=== PATIENT | female | born 1990 | race Caucasian/White ===

== ENCOUNTER 2022-05-13 18:32 | Emergency (ER) | payer OTHER, SELFPAY ==
--- NOTE | ~2022-05-13 | CT_ITS ---
EXAMINATION: CT HEAD WITHOUT and with CONTRAST CLINICAL INFORMATION: 1 year post surgery for a brain tumor. COMPARISON: CT head 08/06/2021 TECHNIQUE: Contiguous axial imaging was performed from the skull base to vertex without and with intravenous administration of contrast. 85 mL of Omnipaque 350 injected. Coronal and sagittal reformatted images are performed at the CT scanner. [This CT examination was performed using dose optimization techniques as appropriate, variously including the following: *Automated exposure control *Adjustment of mA and/or kV according to patient size (this includes techniques or standardized protocols for targeted exams where dose is matched to indication/reason for exam; i.e. extremities or head) *Use of iterative reconstruction technique] DLP: 1166 mGy-cm. FINDINGS: Status post right occipital craniotomy. Focal encephalomalacia in the right cerebral hemisphere communicating with the fourth ventricle There is no evidence of acute intracranial hemorrhage or acute territorial infarction. No abnormal mass-effect or midline shift is seen. Anderson to white matter differentiation is well preserved. No abnormal enhancement postcontrast. No extra-axial fluid collections are identified. The ventricles are normal in size. There is no abnormal attenuation within the brain parenchyma. The mastoid air cells and visualized portions of the paranasal sinuses are well-aerated. No significant change since CT 12/06/2021. CT/CT head/brain wo/w IV con IMPRESSION: 1. No acute intracranial pathology. 2. No abnormal enhancement postcontrast. 3. Status post right occipital craniotomy. Focal encephalomalacia in the right cerebral hemisphere communicating with the fourth ventricle.
[2022-05-13 19:06] VITALS: BP 114/83; PULSE 95; RESP 16; TEMP 36.6; O2SAT 97; BMI 23.8
--- NOTE | 2022-05-13 19:11 | ECG_ITS ---
Test Reason : HEADACHE Blood Pressure : / mmHG Vent. Rate : 082 BPM Atrial Rate : 082 BPM P-R Int : 148 ms QRS Dur : 074 ms QT Int : 364 ms P-R-T Axes : 027 059 012 degrees QTc Int : 425 ms Normal sinus rhythm Nonspecific ST and T wave abnormality Abnormal ECG No previous ECGs available Referred By: Lemuel Rivas Electronically Signed By:Dionicio Petersen
--- NOTE | 2022-05-13 19:12 | ED.GENADULT ---
HPI - General Adult General Chief complaint: Headache Stated complaint: Headache/Weakness in both arms Time Seen by Provider: 05/13/22 19:42 Related Data Previous Rx's ?Medication ?Instructions ?Recorded acetaminophen 500 mg tablet 500 mg PO Q6H PRN fever or pain 06/03/22 (Tylenol Extra Strength) #14 tabs cyclobenzaprine 5 mg tablet 5 mg PO Q8H PRN pain (scale score 06/03/22 7-10) 5 days #14 tabs lidocaine 5 % topical patch 1 patch topical DAILY PRN pain #30 06/03/22 (Lidoderm) ea naproxen 500 mg tablet 500 mg PO BID PRN pain 10 days #20 06/03/22 tabs Allergies Allergy/AdvReac Type Severity Reaction Status Date / Time No Known Allergies Allergy Verified 05/13/22 19:05 [No Known Allergies*] [facility] Social History Social History Alcohol intake: former Physical Exam ED Vital Signs: Vital Signs - 24 hr 05/13/22 19:06 Temperature 98 F Pulse Rate 95 Respiratory Rate 16 Blood Pressure 114/83 Pulse Oximetry 97 Oxygen Delivery Method Room Air BMI result Body Mass Index 23.8 Course Course Course Narrative: This is an RME: Additional HPI, ROS, PE not included below will be deferred to primary provider. 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 She also is reporting arm weakness. Also reporting associated dizziness/lightheadedness. Did discuss this case with the covering attending who recommends bring patient back in obtaining CTA as planned. Medications Administered Discontinued Medications Generic Name Dose Route Start Last Admin Trade Name Freq PRN Reason Stop Dose Admin Iohexol 85 ml 05/13/22 21:30 05/13/22 21:39 Iohexol 350 Mg/Ml 100 Ml Infus..Btl IV 05/13/22 21:31 85 ml ONCE ONE Administration Medical Decision Making Lab Data 05/13/22 20:08 05/13/22 20:08 Labs: Lab Results 05/13/22 Range/Units 20:08 WBC 7.2 (4.8-10.8) X10*3/uL RBC 4.97 (4.20-5.50) X10*6/uL Hgb 14.6 (12.0-16.0) g/dl Hct 44.3 (37.0-47.0) % MCV 89.1 (80.0-98.0) fL MCH 29.4 (27.0-33.0) pg MCHC 33.0 (31.0-35.0) g/dl RDW 12.7 (11.0-16.0) % Plt Count 204 (160-400) X10*3/uL MPV 10.8 (9.4-12.3) fL Immature Gran % (Auto) 0.3 (0.0-0.4) % Neut % (Auto) 64.0 (45-73) % Lymph % (Auto) 26.1 (20-40) % Graves % (Auto) 6.9 (2-11) % Eos % (Auto) 2.3 (0-4) % Baso % (Auto) 0.4 (0-2) % Lymph # (Auto) 1.9 (1.2-4.9) X10*3/uL Graves # (Auto) 0.5 (0.1-1.2) X10*3/uL Eos # (Auto) 0.2 (0.0-0.4) X10*3/uL Baso # (Auto) 0.0 (0.0-0.2) X10*3/uL Abs Immat Gran (auto) 0.02 (0.00-0.03) X10*3/uL Absolute Neuts (auto) 4.6 (2.0-8.3) x10*3/uL Absolute Nucleated RBC 0.000 (0.0-0.012) X10*3/uL Nucleated RBC % (auto) 0.0 (0.0-0.2) /100WBC ESR 2 (0-20) MM/HR Sodium 138 (135-145) mmol/L Potassium 3.9 (3.3-5.1) mmol/L Chloride 106 (96-108) mmol/L Carbon Dioxide 23 (22-29) mmol/L Anion Gap 13 (12-20) BUN 12 (9-16) mg/dL Creatinine 0.78 (0.5-1.4) mg/dL Estim Creat Clear Calc 83.4 Estimated GFR > 60 Random Glucose 96 (60-115) mg/dL Calcium 9.3 (8.4-10.2) mg/dL Magnesium 2.4 (1.6-2.6) mg/dL Total Bilirubin 0.6 (0.0-1.0) mg/dL AST 14 (5-31) U/L ALT 10 (0-31) U/L Alkaline Phosphatase 72 (39-117) U/L Troponin I High Sens < 2.7 (<3.5-17.0) ng/L C-Reactive Protein < 0.10 (< or = 0.50) mg/dL Total Protein 6.4 L (6.5-8.0) g/dL Albumin 4.3 (3.5-5.0) g/dL TSH 3.11 (0.32-4.0) uIU/mL COVID-19 (DIANE) Negative (Negative) COVID-19 Clin Com See Note Discharge Plan Discharge Clinical Impression: Headache, Dizziness Patient Disposition: Home, Self-Care Instructions: Acute Headache (ED), Dizziness (ED) Additional Instructions: Lower your Wellbutrin dose to 300 mg daily. Your workup here in the emergency department was very reassuring. CT scan did not show any recurrence of tumor Labs were also normal. Follow-up with your psychiatrist and neurologist as discussed. Feel better! Prescriptions: No Action acetaminophen [Tylenol Extra Strength] 500 mg tablet 500 mg PO Q6H PRN (Reason: fever or pain) Qty: 14 0RF lidocaine [Lidoderm] 5 % adhesive patch,medicated 1 patch topical DAILY MDD remove after 12 hours PRN (Reason: pain) Qty: 30 0RF Rx Instructions: leave on most painful area for up to 12 hrs naproxen 500 mg tablet 500 mg PO BID PRN (Reason: pain) 10 Days Qty: 20 0RF cyclobenzaprine 5 mg tablet 5 mg PO Q8H PRN (Reason: pain (scale score 7-10)) 5 Days Qty: 14 0RF Interventions: ED Discharge Assessment Last Done: 05/13/22 23:23 Discharge Date/Time: 05/13/22 23:25 Print Language: [place]
--- NOTE | 2022-05-13 19:58 | ED.HA ---
HPI - Headache General Chief Complaint: Headache Stated Complaint: Headache/Weakness in both arms Time Seen by Provider: 05/13/22 19:42 Source: patient Limitations: no limitations History of Present Illness HPI Narrative: Patient complaining of symptoms of feeling dizzy and lightheaded with intermittent bilateral leg and arm weakness. 1-2 weeks of strong migraine symptoms. Occasional left eye drooping Feeling as if she is going to pass out multiple times. She has a history of brain tumor, polycystic gastrinoma. She was treated to bring him in [facility] and had surgery. Her last MRI was in January [facility] and showed no evidence of recurrence. Seizure activity No recent fevers or chills Recent medication change in that she increased her Wellbutrin dose to 450 mg from 300 mg. She has been on this dose in the past without side effects but she is currently on Lamictal which is new. She has not change the dose of Lamictal. Related Data Allergies Allergy/AdvReac Type Severity Reaction Status Date / Time No Known Allergies Allergy Verified 05/13/22 19:05 [No Known Allergies*] Review of Systems Constitutional: Constitutional: Reports as per HPI Comments: No fevers chills or malaise Eyes: Comments: Occasional double vision. Occasional left eye drooping. None now Cardiovascular: Comments: No chest pain Respiratory: Comments: No cough or dyspnea or recent URI Neurologic: Comments: See HPI [facility] Social History Social History Alcohol intake: former Smoked in Last 30 Days: No Use of substances other than those prescribed or required for medical reasons: No Advance Directives: No Advance Directives Information Provided: No Physical Exam Vital Signs: Vital Signs: Last Vital Signs Temp 97.2 F 05/13/22 20:59 Pulse 82 05/13/22 20:59 Resp 15 05/13/22 20:59 BP 106/70 05/13/22 20:59 Pulse Ox 98 05/13/22 20:59 O2 Del Method Room Air 05/13/22 20:59 BMI result Body Mass Index 23.8 Const: Other: Awake alert. No acute distress HEENT: Other: Normocephalic atraumatic Eyes: Other: Pupils equal round reactive to light. Extraocular muscles intact. No nystagmus or dysconjugate gaze Neck: Other: Supple, full range of motion Resp: Other: Clear and equal bilaterally without wheezes rales or rhonchi Cardio: Other: Regular rate and rhythm without murmurs rubs or gallops GI: Other: Soft nontender nondistended Skin: Other: Warm pink and dry without rash Neuro: Other: No focal neuro deficits. Drift on 12nd count. Secondary [employer] equal bilaterally. Ambulates without difficulty. [id number] is intact without ataxia bilaterally. No facial droop No aphasia or dysarthria Medications Administered Discontinued Medications Generic Name Dose Route Start Last Admin Trade Name Sergio PRN Reason Stop Dose Admin Iohexol 85 ml 05/13/22 21:30 05/13/22 21:39 Iohexol 350 Mg/Ml 100 Ml Infus..Btl IV 05/13/22 21:31 85 ml ONCE ONE Administration Medical Decision Making Medical Decision Making MDM Narrative: Patient with neurologic symptoms postoperatively from tumor resection. Concern for tumor recurrence although she had a in clear MRI 4 months ago. She also has a history of Ari's thyroiditis. She has also recently changed her Wellbutrin dose. Multiple potential etiologies. Will reimage brain. Mango thyroid studies. Await other labs and workup. AP the 18:00. EKG sinus rhythm without acute ischemic changes. And 50 18:00. CT scan shows no acute findings and most importantly no evidence of recurrence of tumor. CBC is normal. Chemistries are also normal. Given all of this, it is quite possible that her recent increase in Wellbutrin to 450 mg she is causing her symptoms. Increase happened just prior to symptom onset. I will have her lower her dose back to 300 mg daily. Follow-up with Neurology and her psychiatrist for further recommendations Lab Data 05/13/22 20:08 05/13/22 20:08 Labs: Lab Results 05/13/22 05/13/22 05/13/22 Range/Units 20:08 20:08 20:08 WBC 7.2 (4.8-10.8) X10*3/uL RBC 4.97 (4.20-5.50) X10*6/uL Hgb 14.6 (12.0-16.0) g/dl Hct 44.3 (37.0-47.0) % MCV 89.1 (80.0-98.0) fL MCH 29.4 (27.0-33.0) pg MCHC 33.0 (31.0-35.0) g/dl RDW 12.7 (11.0-16.0) % Plt Count 204 (160-400) X10*3/uL MPV 10.8 (9.4-12.3) fL Immature Gran % (Auto) 0.3 (0.0-0.4) % Neut % (Auto) 64.0 (45-73) % Lymph % (Auto) 26.1 (20-40) % Victoria % (Auto) 6.9 (2-11) % Eos % (Auto) 2.3 (0-4) % Baso % (Auto) 0.4 (0-2) % Lymph # (Auto) 1.9 (1.2-4.9) X10*3/uL Victoria # (Auto) 0.5 (0.1-1.2) X10*3/uL Eos # (Auto) 0.2 (0.0-0.4) X10*3/uL Baso # (Auto) 0.0 (0.0-0.2) X10*3/uL Abs Immat Gran (auto) 0.02 (0.00-0.03) X10*3/uL Absolute Neuts (auto) 4.6 (2.0-8.3) x10*3/uL Absolute Nucleated RBC 0.000 (0.0-0.012) X10*3/uL Nucleated RBC % (auto) 0.0 (0.0-0.2) /100WBC ESR 2 (0-20) MM/HR Sodium 138 (135-145) mmol/L Potassium 3.9 (3.3-5.1) mmol/L Chloride 106 (96-108) mmol/L Carbon Dioxide 23 (22-29) mmol/L Anion Gap 13 (12-20) BUN 12 (9-16) mg/dL Creatinine 0.78 (0.5-1.4) mg/dL Estim Creat Clear Calc 83.4 Estimated GFR > 60 Random Glucose 96 (60-115) mg/dL Calcium 9.3 (8.4-10.2) mg/dL Magnesium 2.4 (1.6-2.6) mg/dL Total Bilirubin 0.6 (0.0-1.0) mg/dL AST 14 (5-31) U/L ALT 10 (0-31) U/L Alkaline Phosphatase 72 (39-117) U/L Troponin I High Sens (<3.5-17.0) ng/L C-Reactive Protein < 0.10 (< or = 0.50) mg/dL Total Protein 6.4 L (6.5-8.0) g/dL Albumin 4.3 (3.5-5.0) g/dL TSH (0.32-4.0) uIU/mL COVID-19 (DIANE) (Negative) COVID-19 Clin Com 05/13/22 05/13/22 05/13/22 Range/Units 20:08 20:08 20:08 WBC (4.8-10.8) X10*3/uL RBC (4.20-5.50) X10*6/uL Hgb (12.0-16.0) g/dl Hct (37.0-47.0) % MCV (80.0-98.0) fL MCH (27.0-33.0) pg MCHC (31.0-35.0) g/dl RDW (11.0-16.0) % Plt Count (160-400) X10*3/uL MPV (9.4-12.3) fL Immature Gran % (Auto) (0.0-0.4) % Neut % (Auto) (45-73) % Lymph % (Auto) (20-40) % Victoria % (Auto) (2-11) % Eos % (Auto) (0-4) % Baso % (Auto) (0-2) % Lymph # (Auto) (1.2-4.9) X10*3/uL Victoria # (Auto) (0.1-1.2) X10*3/uL Eos # (Auto) (0.0-0.4) X10*3/uL Baso # (Auto) (0.0-0.2) X10*3/uL Abs Immat Gran (auto) (0.00-0.03) X10*3/uL Absolute Neuts (auto) (2.0-8.3) x10*3/uL Absolute Nucleated RBC (0.0-0.012) X10*3/uL Nucleated RBC % (auto) (0.0-0.2) /100WBC ESR (0-20) MM/HR Sodium (135-145) mmol/L Potassium (3.3-5.1) mmol/L Chloride (96-108) mmol/L Carbon Dioxide (22-29) mmol/L Anion Gap (12-20) BUN (9-16) mg/dL Creatinine (0.5-1.4) mg/dL Estim Creat Clear Calc Estimated GFR Random Glucose (60-115) mg/dL Calcium (8.4-10.2) mg/dL Magnesium (1.6-2.6) mg/dL Total Bilirubin (0.0-1.0) mg/dL AST (5-31) U/L ALT (0-31) U/L Alkaline Phosphatase (39-117) U/L Troponin I High Sens < 2.7 (<3.5-17.0) ng/L C-Reactive Protein (< or = 0.50) mg/dL Total Protein (6.5-8.0) g/dL Albumin (3.5-5.0) g/dL TSH 3.11 (0.32-4.0) uIU/mL COVID-19 (DIANE) Negative (Negative) COVID-19 Clin Com See Note Discharge Plan Discharge Clinical Impression: Headache, Dizziness Patient Disposition: Home, Self-Care Instructions: Dizziness (ED), Acute Headache (ED) Additional Instructions: Lower your Wellbutrin dose to 300 mg daily. Your workup here in the emergency department was very reassuring. CT scan did not show any recurrence of tumor Labs were also normal. Follow-up with your psychiatrist and neurologist as discussed. Feel better!
[2022-05-13 20:15] LABS: MANUAL DIFF FLAG NO
[2022-05-13 20:22] LABS: Basophils Percent Auto 0.4 % (0-2); Eosinophils Absolute Auto 0.2 X10*3/uL (0.0-0.4); Eosinophils Percent Auto 2.3 % (0-4); Hematocrit 44.3 % (37.0-47.0); Hemoglobin 14.6 g/dl (12.0-16.0); Imm Gran Abs Auto 0.02 X10*3/uL (0.00-0.03); Imm Gran Pct Auto 0.3 % (0.0-0.4); Lymphocytes Absolute Auto 1.9 X10*3/uL (1.2-4.9); Lymphocytes Percent Auto 26.1 % (20-40); Mean Corpuscular Hemoglobin 29.4 pg (27.0-33.0); Mean Corpuscular Volume 89.1 fL (80.0-98.0); Mean Platelet Volume 10.8 fL (9.4-12.3); Monocytes Absolute Auto 0.5 X10*3/uL (0.1-1.2); Monocytes Percent Auto 6.9 % (2-11); Neutrophils Absolute Auto 4.6 x10*3/uL (2.0-8.3); Platelet Count 204 X10*3/uL (160-400); Red Blood Count 4.97 X10*6/uL (4.20-5.50); Red Cell Distribution Width 12.7 % (11.0-16.0); White Blood Count 7.2 X10*3/uL (4.8-10.8)
[2022-05-13 20:31] LABS: Alanine Aminotransferase 10 U/L (0-31); Albumin Level 4.3 g/dL (3.5-5.0); Alkaline Phosphatase 72 U/L (39-117); Anion Gap 13 (12-20); Aspartate Amino Transferase 14 U/L (5-31); Bilirubin Total 0.6 mg/dL (0.0-1.0); Blood Urea Nitrogen 12 mg/dL (9-16); C Reactive Protein < 0.10 mg/dL (< or = 0.50); Calcium 9.3 mg/dL (8.4-10.2); Carbon Dioxide 23 mmol/L (22-29); Chloride 106 mmol/L (96-108); Creatinine Clr Calc Pharmacy 83.4; Estimated Glomerular Filt Rate > 60; Glucose Random 96 mg/dL (60-115); Magnesium 2.4 mg/dL (1.6-2.6); Potassium 3.9 mmol/L (3.3-5.1); Sodium 138 mmol/L (135-145); Total Protein 6.4 g/dL (6.5-8.0)
[2022-05-13 20:40] LABS: COVID-19 Test Negative (Negative); IDNOW Serial# 9DB6401D
--- NOTE | 2022-05-13 20:52 | PC.NURSE ---
pt AOx3 - reporting to ED with migranes headaches x2 weeks (not baseline), weakness in arms and legs, dizziness, and near syncopal episodes. No neuro deficits noted during exam, hand grasps equal, no drift in extremities noted or discrepancies in strength. Vitals stable, [place] NSR. labs drawn. IV inserted. awaiting CT scan.
[2022-05-13 20:54] LABS: Erythrocyte Sedimentation Rate 2 MM/HR (0-20); TSH reflex Free T4 3.11 uIU/mL (0.32-4.0)
[2022-05-13 20:55] LABS: Troponin-I High Sensitivity < 2.7 ng/L (<3.5-17.0)
[2022-05-13 20:59] VITALS: BP 106/70; PULSE 82; RESP 15; TEMP 36.2; O2SAT 98
[2022-05-13] MEDS: iohexoL 350 MG/ML 100 ML INFUS..BTL 85 ML IV (21:39)
[2022-05-13 23:11] VITALS: BP 113/71; PULSE 79; RESP 18; TEMP 36.2; O2SAT 96
== END 2022-05-13 23:25 | disposition home or self-care (01) ==
PROVIDERS: Physician Assistant; Emergency Provider Emergency Medicine; PCP Family Medicine
DX: R51.9 Headache, unspecified (principal); R42 Dizziness and giddiness; R53.1 Weakness; Z20.822 Contact with and (suspected) exposure to COVID-19; Z85.841 Personal history of malignant neoplasm of brain
CPT/HCPCS: 36415; 70470; 80053; 83735; 84443; 84484; 85025; 85652; 86140; 87635; 93005; 99284; Q9967

== ENCOUNTER 2022-06-03 15:40 | Emergency (ER) | payer OTHER, SELFPAY ==
--- NOTE | ~2022-06-03 | XR_ITS ---
EXAMINATION: XR CHEST CLINICAL INFORMATION: Chest pain. COMPARISON: Chest radiographs dated 02/17/2019. TECHNIQUE: Frontal view of the chest was obtained. FINDINGS: No significant abnormality is noted involving the heart, lungs, mediastinum, bony thorax or soft tissues. XR/XR chest 1V IMPRESSION: No acute cardiopulmonary process.
--- NOTE | 2022-06-03 15:46 | ECG_ITS ---
Test Reason : cp Blood Pressure : / mmHG Vent. Rate : 081 BPM Atrial Rate : 081 BPM P-R Int : 144 ms QRS Dur : 084 ms QT Int : 374 ms P-R-T Axes : 026 065 064 degrees QTc Int : 434 ms Normal sinus rhythm Nonspecific ST and T wave abnormality Abnormal ECG When compared with ECG of 13-MAY-2022 19:58, No significant change was found Referred By: Generic ED Physician Electronically Signed By:Dionicio Petersen
[2022-06-03 16:02] VITALS: BP 100/73; PULSE 81; RESP 17; TEMP 36; O2SAT 97; BMI 23.6
--- NOTE | 2022-06-03 16:03 | ED.CHESTPAIN ---
HPI - Chest Pain General Chief Complaint: General Medical Stated Complaint: chest/ shoulder pain Time Seen by Provider: 06/03/22 19:19 Source: patient Mode of arrival: ambulatory History of Present Illness HPI narrative: 31yo F w/PMHx VSD s/p repair presenting to the ED complaining of left shoulder pain since waking this morning, now with radiation to left chest/back x few hours. Also reports intermittent SOB and nausea. Denies recent injury/trauma or fall, does report had a massage a few weeks ago and did feel some discomfort to left back during. Denies headache, lightheadedness/dizziness, vomiting, abdominal pain, pedal edema, recent travel MD complaint: chest discomfort Related Data Previous Rx's Medication Instructions Recorded acetaminophen 500 mg tablet 500 mg PO Q6H PRN fever or pain 06/03/22 (Tylenol Extra Strength) #14 tabs cyclobenzaprine 5 mg tablet 5 mg PO Q8H PRN pain (scale score 06/03/22 7-10) 5 days #14 tabs lidocaine 5 % topical patch 1 patch topical DAILY PRN pain #30 06/03/22 (Lidoderm) ea naproxen 500 mg tablet 500 mg PO BID PRN pain 10 days #20 06/03/22 tabs Allergies Allergy/AdvReac Type Severity Reaction Status Date / Time No Known Allergies Allergy Verified 05/13/22 19:05 [No Known Allergies*] Review of Systems Review of Systems: Constitutional: No Fever, No Chills, No Night Sweats, No Fatigue, No Malaise ENT/Mouth: No Ear Pain, No Nasal Congestion, No sore throat, No Rhinorrhea, No Swallowing Difficulty Eyes: No Eye Pain, No Swelling, No Redness, No Vision Changes Cardiovascular: +Chest Pain, + intermittent SOB, No Edema, No Palpitations Respiratory: No Cough, No Sputum, No Wheezing, No Smoke Exposure, No Dyspnea Gastrointestinal: No Nausea, No Vomiting, No Diarrhea, No Constipation, No Abdominal pain Genitourinary: No Dysuria, No Urinary Frequency, No Hematuria, No Urinary Incontinence/retention, No Flank Pain Musculoskeletal: + joint pain, No Myalgias, No Joint Swelling Skin: No Skin Lesions, No rash Neuro: No Weakness, No Numbness, No Paresthesias, No Dizziness, No Headache Yes all other systems are reviewed and are negative Constitutional: Constitutional: Reports as per [facility] Past Medical History Attestation statement: The following information was validated with the patient. Social History Social History Alcohol intake: former Advance Directives: No Advance Directives Information Provided: No Physical Exam Vital Signs: Vital Signs: Last Vital Signs Temp 96.8 F 06/03/22 16:02 Pulse 73 06/03/22 19:20 Resp 16 06/03/22 19:20 BP 109/69 06/03/22 19:20 Pulse Ox 98 06/03/22 19:20 O2 Del Method Room Air 06/03/22 19:20 BMI result Body Mass Index 23.6 Const: General: cooperative, healthy appearing and no acute distress Orientation/consciousness: patient oriented x3 Limitations: no limitations HEENT: Head: Yes normal to inspection and Yes atraumatic Ears: hearing grossly normal bilaterally General nose exam: Normal external nose present Face and sinus: Yes normal facial exam Eyes: General: appearance normal, both eyes and all related structures EOM: EOMs intact bilaterally Neck: Neck: Yes normal visual inspection and Yes no meningeal signs Chest: Chest palpation & inspection: normal inspection of the chest, no crepitus and no tenderness Resp: Effort & Inspection: normal respiratory effort and no respiratory distress Auscultation: clear to auscultation bilaterally, no crackles, no rales, no rhonchi and no wheezes Cardio: Rate: regular rate Heart sounds: S1 normal heart sound present and S2 normal heart sound present GI: Inspection: Yes normal to inspection Palpation (GI): Soft to palpation, nontender, no guarding and not rigid : General: Yes no CVA tenderness Back/Spine/Pelvis: Other: No midline cervical/thoracic/lumbar spinous tenderness/step-off or deformity. + left-sided thoracic paraspinal tenderness to palpation/palpable muscle spasming Back: no CVA tenderness Skin: Rashes: no rashes Wounds: no wounds Neuro: General: patient oriented x3, tone normal and no meningeal signs Gait exam (Neuro): Normal gait present Extrem: General: Yes normal to inspection and Yes no pedal edema Course Course Course Narrative: RME: 31yo F w/PMHx VSD c/o L shoulder pain radiating to chest & back since waking today around 9AM. reports intermittent SOB & nausea EKG, Labs, CXR ordered Full HPI, ROS and PE to be performed by primary ED provider. -1936--CXR unremarkable. Labs reassuring, troponin x1 negative -2043--troponin x2 negative Results discussed with patient including worrisome signs and symptoms and strict return precautions, and when to return to the emergency department. They verbalized understanding and feel safe for discharge at this time. Medications Administered Discontinued Medications Generic Name Dose Route Start Last Admin Trade Name Sergio PRN Reason Stop Dose Admin Acetaminophen 650 mg 06/03/22 19:21 06/03/22 19:31 Acetaminophen 325 Mg Tablet PO 06/03/22 19:22 650 mg ONCE ONE Administration Ketorolac Tromethamine 30 mg 06/03/22 20:04 06/03/22 20:12 Ketorolac Tromethamine 30 Mg/Ml Vial IM 06/03/22 20:05 30 mg ONCE ONE Administration Lidocaine 1 patch 06/03/22 19:38 06/03/22 20:01 Lidocaine 4 % Patch Adh..Patch TRANSDERMA 06/03/22 19:39 1 patch ONCE ONE Administration Protocol Medical Decision Making Medical Decision Making [facility] Narrative: 31yo F w/PMHx VSD s/p repair presenting to the ED complaining of left shoulder pain since waking this morning, now with radiation to left chest/back x few hours. Also reports intermittent SOB and nausea. On exam vital signs stable, NAD, nontoxic appearing, lungs CTA, left thoracic paraspinal tenderness elicited. Shoulder without tenderness. Full range of motion intact. Concern for atypical ACS vs MSK pain/spasming. Rule out pneumonia. Lower suspicion for PE, dissection, AAA Plan: EKG, labs, CXR Please refer to course for remaining clinical decision making, interpretation of labs/imaging results, and discussions with consultants and/or family members. Differential Diagnosis Differential Diagnoses: The differential diagnosis associated with the presentation includes As above Admission/Observation Consideration of admission/observation: Escalation of care including admission/observation considered Lab Data [facility] Lab Attestation statement: I reviewed the patient's lab results. 06/03/22 16:50 06/03/22 16:50 Labs: Lab Results 06/03/22 06/03/22 06/03/22 Range/Units 16:50 16:50 16:50 WBC 7.6 (4.8-10.8) X10*3/uL RBC 4.83 (4.20-5.50) X10*6/uL Hgb 14.2 (12.0-16.0) g/dl Hct 44.0 (37.0-47.0) % MCV 91.1 (80.0-98.0) fL MCH 29.4 (27.0-33.0) pg MCHC 32.3 (31.0-35.0) g/dl RDW 12.3 (11.0-16.0) % Plt Count 224 (160-400) X10*3/uL MPV 10.4 (9.4-12.3) fL Immature Gran % (Auto) 0.3 (0.0-0.4) % Neut % (Auto) 73.2 H (45-73) % Lymph % (Auto) 17.4 L (20-40) % [place] % (Auto) 5.4 (2-11) % Eos % (Auto) 3.2 (0-4) % Baso % (Auto) 0.5 (0-2) % Lymph # (Auto) 1.3 (1.2-4.9) X10*3/uL [place] # (Auto) 0.4 (0.1-1.2) X10*3/uL Eos # (Auto) 0.2 (0.0-0.4) X10*3/uL Baso # (Auto) 0.0 (0.0-0.2) X10*3/uL Abs Immat Gran (auto) 0.02 (0.00-0.03) X10*3/uL Absolute Neuts (auto) 5.6 (2.0-8.3) x10*3/uL Absolute Nucleated RBC 0.000 (0.0-0.012) X10*3/uL Nucleated RBC % (auto) 0.0 (0.0-0.2) /100WBC Sodium 139 (135-145) mmol/L Potassium 4.4 (3.3-5.1) mmol/L Chloride 105 (96-108) mmol/L Carbon Dioxide 26 (22-29) mmol/L Anion Gap 12 (12-20) BUN 15 (9-16) mg/dL Creatinine 0.75 (0.5-1.4) mg/dL Estim Creat Clear Calc 86.7 Estimated GFR > 60 Random Glucose 132 H (60-115) mg/dL Calcium 9.3 (8.4-10.2) mg/dL Total Bilirubin 0.4 (0.0-1.0) mg/dL Direct Bilirubin 0.1 (0.0-0.5) mg/dL AST 18 (5-31) U/L ALT 12 (0-31) U/L Alkaline Phosphatase 74 (39-117) U/L Troponin I High Sens < 2.7 (<3.5-17.0) ng/L Total Protein 6.4 L (6.5-8.0) g/dL Albumin 4.3 (3.5-5.0) g/dL 06/03/22 Range/Units 19:42 WBC (4.8-10.8) X10*3/uL RBC (4.20-5.50) X10*6/uL Hgb (12.0-16.0) g/dl Hct (37.0-47.0) % MCV (80.0-98.0) fL MCH (27.0-33.0) pg MCHC (31.0-35.0) g/dl RDW (11.0-16.0) % Plt Count (160-400) X10*3/uL MPV (9.4-12.3) fL Immature Gran % (Auto) (0.0-0.4) % Neut % (Auto) (45-73) % Lymph % (Auto) (20-40) % [place] % (Auto) (2-11) % Eos % (Auto) (0-4) % Baso % (Auto) (0-2) % Lymph # (Auto) (1.2-4.9) X10*3/uL [place] # (Auto) (0.1-1.2) X10*3/uL Eos # (Auto) (0.0-0.4) X10*3/uL Baso # (Auto) (0.0-0.2) X10*3/uL Abs Immat Gran (auto) (0.00-0.03) X10*3/uL Absolute Neuts (auto) (2.0-8.3) x10*3/uL Absolute Nucleated RBC (0.0-0.012) X10*3/uL Nucleated RBC % (auto) (0.0-0.2) /100WBC Sodium (135-145) mmol/L Potassium (3.3-5.1) mmol/L Chloride (96-108) mmol/L Carbon Dioxide (22-29) mmol/L Anion Gap (12-20) BUN (9-16) mg/dL Creatinine (0.5-1.4) mg/dL Estim Creat Clear Calc Estimated GFR Random Glucose (60-115) mg/dL Calcium (8.4-10.2) mg/dL Total Bilirubin (0.0-1.0) mg/dL Direct Bilirubin (0.0-0.5) mg/dL AST (5-31) U/L ALT (0-31) U/L Alkaline Phosphatase (39-117) U/L Troponin I High Sens < 2.7 (<3.5-17.0) ng/L Total Protein (6.5-8.0) g/dL Albumin (3.5-5.0) g/dL Radiology Impression Discussion of test interpretation with radiology: I have reviewed the radiologist's reading. External Record Review External record reviewed: Inpatient record, Office record, Outpatient record, Prior outpatient labs, Prior outpatient radiology, Primary care record and Outside ED record Discharge Plan Discharge Clinical Impression: Atypical chest pain Patient Disposition: Home, Self-Care Instructions: Noncardiac Chest Pain (ED) Additional Instructions: Your blood work is reassuring. Her chest x-ray is unremarkable Please close follow-up with her doctor as well as Cardiology If her symptoms persist or worsen return to the emergency department Flexeril is a muscle relaxer, take at night as it makes you drowsy, do not drive, drink alcohol, or operate machinery while taking it Naproxen as an anti-inflammatory / pain medication, take with food Lidoderm patches are numbing patches, apply to painful area In addition take Tylenol at home If symptoms persist or worsen, pain becomes unbearable, you developed urinary retention or incontinence, or weakness return to the ED Prescriptions: New acetaminophen [Tylenol Extra Strength] 500 mg tablet 500 mg PO Q6H PRN (Reason: fever or pain) Qty: 14 0RF lidocaine [Lidoderm] 5 % adhesive patch,medicated 1 patch topical DAILY MDD remove after 12 hours PRN (Reason: pain) Qty: 30 0RF Rx Instructions: leave on most painful area for up to 12 hrs naproxen 500 mg tablet 500 mg PO BID PRN (Reason: pain) 10 Days Qty: 20 0RF cyclobenzaprine 5 mg tablet 5 mg PO Q8H PRN (Reason: pain (scale score 7-10)) 5 Days Qty: 14 0RF [place] [facility] [place] [facility] [place] Group] - 5 days Kasandra Sanchez MD [Primary Care Provider] - 2 days
[2022-06-03 16:55] LABS: MANUAL DIFF FLAG NO
[2022-06-03 16:56] LABS: Basophils Percent Auto 0.5 % (0-2); Eosinophils Absolute Auto 0.2 X10*3/uL (0.0-0.4); Eosinophils Percent Auto 3.2 % (0-4); Hemoglobin 14.2 g/dl (12.0-16.0); Imm Gran Abs Auto 0.02 X10*3/uL (0.00-0.03); Imm Gran Pct Auto 0.3 % (0.0-0.4); Lymphocytes Absolute Auto 1.3 X10*3/uL (1.2-4.9); Lymphocytes Percent Auto 17.4 % (20-40); Mean Corpuscular HGB Conc 32.3 g/dl (31.0-35.0); Mean Corpuscular Hemoglobin 29.4 pg (27.0-33.0); Mean Corpuscular Volume 91.1 fL (80.0-98.0); Mean Platelet Volume 10.4 fL (9.4-12.3); Monocytes Absolute Auto 0.4 X10*3/uL (0.1-1.2); Monocytes Percent Auto 5.4 % (2-11); Neutrophils Absolute Auto 5.6 x10*3/uL (2.0-8.3); Neutrophils Percent Auto 73.2 % (45-73); Platelet Count 224 X10*3/uL (160-400); Red Blood Count 4.83 X10*6/uL (4.20-5.50); Red Cell Distribution Width 12.3 % (11.0-16.0); White Blood Count 7.6 X10*3/uL (4.8-10.8)
[2022-06-03 17:15] LABS: Alanine Aminotransferase 12 U/L (0-31); Albumin Level 4.3 g/dL (3.5-5.0); Alkaline Phosphatase 74 U/L (39-117); Anion Gap 12 (12-20); Aspartate Amino Transferase 18 U/L (5-31); Bilirubin Direct 0.1 mg/dL (0.0-0.5); Bilirubin Total 0.4 mg/dL (0.0-1.0); Blood Urea Nitrogen 15 mg/dL (9-16); Calcium 9.3 mg/dL (8.4-10.2); Carbon Dioxide 26 mmol/L (22-29); Chloride 105 mmol/L (96-108); Creatinine Clr Calc Pharmacy 86.7; Estimated Glomerular Filt Rate > 60; Glucose Random 132 mg/dL (60-115); Potassium 4.4 mmol/L (3.3-5.1); Sodium 139 mmol/L (135-145); Total Protein 6.4 g/dL (6.5-8.0)
[2022-06-03 17:29] LABS: Troponin-I High Sensitivity < 2.7 ng/L (<3.5-17.0)
[2022-06-03 19:20] VITALS: BP 109/69; PULSE 73; RESP 16; O2SAT 98
[2022-06-03] MEDS: Acetaminophen 325 MG TABLET 650 MG PO (19:31)
[2022-06-03] MEDS: Lidocaine 4 % Patch ADH..PATCH 1 PATCH TRANSDERMA (20:01)
[2022-06-03] MEDS: Ketorolac Tromethamine 30 MG/ML VIAL IM (20:12)
[2022-06-03 20:27] LABS: Troponin-I High Sensitivity < 2.7 ng/L (<3.5-17.0)
== END 2022-06-03 20:56 | disposition home or self-care (01) ==
PROVIDERS: Physician Assistant; Emergency Provider Emergency Medicine Emergency Medical Services; PCP Family Medicine
DX: R07.89 Other chest pain (principal); M25.512 Pain in left shoulder; R06.02 Shortness of breath; Z79.899 Other long term (current) drug therapy
CPT/HCPCS: 36415; 71045; 80048; 80076; 84484; 85025; 93005; 96372; 99284; J1885

== ENCOUNTER 2023-06-25 15:00 | Outpatient (REF) | payer OTHER, SELFPAY ==
--- NOTE | ~2023-06-25 | US_ITS ---
EXAMINATION: US SOFT TISSUE HEAD/NECK CLINICAL INFORMATION: Submandibular mass. COMPARISON: None available. TECHNIQUE: Linear transducer rowan-scale and color Doppler examination of the right neck level Ib/1a areas. FINDINGS: Multiple abnormal-appearing lymph nodes are seen, without fatty pastro identified, with internal vascularity. The largest 2 measure 1.3 x 0.6 x 1.3 cm and 1.0 x 0.7 x 1.0 cm. US/US soft tiss head and/or neck IMPRESSION: Abnormal appearing lymph nodes in the right neck. These would be amenable to ultrasound-guided biopsy if clinically indicated.
== END 2023-06-25 15:01 | disposition home or self-care (01) ==
LOC: HO.US 15:00
PROVIDERS: PCP Family Medicine; Visit Provider Nurse Practitioner Family
DX: R22.0 Localized swelling, mass and lump, head (principal)
CPT/HCPCS: 76536

== ENCOUNTER 2023-07-24 09:11 | Outpatient (REF) | payer OTHER, SELFPAY ==
--- NOTE | ~2023-07-24 | US_ITS ---
ULTRASOUND-GUIDED FINE NEEDLE ASPIRATION of right submandibular lymph node INDICATION: Abnormal appearing right centimeter lymph node on diagnostic ultrasound. PROCEDURE: Informed consent was obtained from the patient prior to the procedure. During this process, the procedure and potential alternatives were explained, along with the intended outcome and benefits. The risks of the procedure, as well as the risks of not doing the procedure, were discussed. The patient was given the opportunity to ask questions regarding the procedure and appeared competent to make medical decisions. A signed consent form which documents this discussion was placed in the medical record. A timeout was performed in the room. The patient was placed in a supine position with the neck extended. The neck was prepped and draped in routine sterile fashion. 1% lidocaine was used as anesthetic. Under real-time ultrasound guidance, a 25-gauge needle was placed into the right submandibular lymph node and a total of 3 aspirations were performed. The specimens were placed in CytoLyt and and RPMI for flow cytometry. Postprocedure images showed no hematoma. A Band-Aid was applied to the access site. The patient tolerated the procedure well with no immediate complications. Permanent ultrasound images were archived to the procedure. US/US guided fine needle asp IMPRESSION: -Ultrasound-guided fine-needle aspiration of right submandibular lymph node. 3 FNAs performed. -Recommend contrast-enhanced CT of the neck to look for etiology, pending pathology. This procedure was performed by Wade Fallon PA-C, and directly supervised by Dr. Phillips
--- NOTE | ~2023-07-24 | XR_ITS ---
EXAMINATION: XR FINGER, LEFT CLINICAL INFORMATION: Left thumb pain COMPARISON: None available. TECHNIQUE: 3 views of left thumb including AP view of the hand FINDINGS: The bones and soft tissues are normal. No fracture. Alignment is anatomic. Joint spaces are maintained. XR/XR finger LT min 2V IMPRESSION: Normal x-ray series of the left thumb including hand
--- NOTE | ~2023-07-24 | US_ITS ---
EXAMINATION: US THYROID CLINICAL INFORMATION: Hypothyroidism, palpable mass, no prior study, no prior biopsy. COMPARISON: None available. TECHNIQUE: Linear transducer rowan-scale and color Doppler examination with attention to the region of the thyroid. FINDINGS: SIZE: Measurements of the thyroid lobes and nodules are given in sagittal, anteroposterior and transverse dimensions respectively. Right Thyroid Lobe: 4.1 x 1.4 x 1.1 cm, volume 3.3 mL. Parenchyma: The gland echotexture is heterogeneous. Thyroid vascularity is hypervascular. Left Thyroid Lobe: 3.7 x 1.6 x 1.2 cm, volume 3.7 mL. Parenchyma: The gland echotexture is heterogeneous. Thyroid vascularity is hypervascular. Isthmus: 0.2 cm in maximum AP dimension. Estimated total number of nodules greater than or equal to 1 cm: 0. [employer] nodules are described as follows: NODES: No lymphadenopathy is seen in the tissue surrounding the thyroid gland. US/US thyroid IMPRESSION: Diffusely heterogeneous, hypervascular thyroid gland. No suspicious thyroid nodule identified. ACR TI-RADS RECOMMENDATION REFERENCE: Ultrasound-guided fine-needle aspiration, followup ultrasound, no further follow up. * TR1 (0 point) and TR2 (2 points): No FNA or follow up. * TR3 (3 points): FNA if more than or equal to 2.5 cm in maximum dimension, followup ultrasound in 1, 3 and 5 years if 1.5 to 2.4 cm in maximum dimension. * TR4 (4-6 points): FNA if more than or equal to 1.5 cm in maximum dimension, followup ultrasound in 1, 2, 3 and 5 years if 1 to 1.4 cm in maximum dimension. * TR5 (more than or equal to 7 points): FNA if more than or equal to 1 cm in maximum dimension, followup ultrasound every year for 5 years if 0.5 to 0.9 cm in maximum dimension. * TR3, TR4 or TR5 nodules that are below the size threshold for followup receive no follow up.
[2023-07-24] MEDS: Lidocaine HCl 1 % MPF 5 ML VIAL SUBCUT (10:42)
[2023-07-24 12:36] LABS: TSH reflex Free T4 4.65 uIU/mL (0.32-4.0)
[2023-07-24 14:44] LABS: Free T4 (Free Thyroxine) 0.94 ng/dL (0.71-1.85)
== END 2023-07-24 09:12 | disposition home or self-care (01) ==
LOC: HO.US 09:11
PROVIDERS: Nurse Practitioner Family; PCP Family Medicine; Visit Provider Nurse Practitioner Family
DX: E03.9 Hypothyroidism, unspecified (principal); M79.645 Pain in left finger(s); R59.0 Localized enlarged lymph nodes
CPT/HCPCS: 10005; 36415; 73140; 76536; 84439; 84443; 88173

== ENCOUNTER → 2023-07-24 09:37 | Outpatient (BNV) | payer OTHER, SELFPAY | PROVIDERS: PCP Family Medicine; Visit Provider Physician Assistant Surgical | DX: R59.0 Localized enlarged lymph nodes (principal) | CPT/HCPCS: 10005 ==

== ENCOUNTER 2023-09-03 14:26 | Outpatient (REF) | payer OTHER, SELFPAY ==
--- NOTE | ~2023-09-03 | CT_ITS ---
EXAMINATION: CT SOFT TISSUE NECK WITH CONTRAST CLINICAL INFORMATION: Abnormal lymph node COMPARISON: None available. TECHNIQUE: Following the intravenous administration of 60 mL of Omnipaque 350 intravenous contrast, helical imaging was performed in the axial plane with generation of coronal and sagittal reformatted images. This CT examination was performed using dose optimization techniques as appropriate, variously including the following: *Automated exposure control *Adjustment of mA and/or kV according to patient size (this includes techniques or standardized protocols for targeted exams where dose is matched to indication/reason for exam; i.e. extremities or head) *Use of iterative reconstruction technique DLP: 278 mGy-cm FINDINGS: No suspicious enhancement. There are several bilateral subcentimeter level I and II lymph nodes including 9 mm right level Ia and 7 mm right level IIa nodes. No abnormally enlarged neck lymph node. The nasopharynx, oropharynx, hypopharynx, and laryngeal structures are unremarkable. The parotid, submandibular, and thyroid glands are unremarkable. The visualized orbits are unremarkable. The paranasal sinuses and mastoid air cells are clear. The visualized vasculature of the neck are unremarkable. Sequelae of right suboccipital craniotomy. Partially imaged cystic structure within the right aspect of the posterior fossa. No acute osseous abnormality. No lytic or blastic osseous lesions. The visualized lungs are clear. CT/CT soft tissue neck w IV con IMPRESSION: Bilateral subcentimeter level I and II lymph nodes, likely reactive. Otherwise, no suspicious neck mass or cervical adenopathy.
[2023-09-03] MEDS: iohexoL 350 MG/ML 100 ML INFUS..BTL 60 ML IV (15:16)
== END 2023-09-03 14:27 | disposition home or self-care (01) ==
LOC: HO.CT 14:26
PROVIDERS: Visit Provider Family Medicine
DX: R59.1 Generalized enlarged lymph nodes (principal)
CPT/HCPCS: 70491; Q9967

== ENCOUNTER 2023-09-29 13:28 | Outpatient (AMB) | payer OTHER, SELFPAY ==
--- NOTE | 2023-09-29 13:29 | A.OFFVIS_ITS ---
Vital Signs 3 09/29/23 13:49 Height 5 ft 2 in Weight 152 lb 6 oz BMI 27.9 BP 118/68 Blood Pressure Location Lt brachial Position Sitting Pulse 87 Intake Visit Reasons: excisional lymph node biopsy Intake Note: Patient is seen in office for request of biopsy, following lymph nodes of the neck. Pt c/o: feel lump on the right side of the neck, discomfort swallowing, needs to clear throat frequently, voice horse , process is unclear, had multiple scan and still doesn't have a Dx, onset 02/2023 CT: 09/03/23 PCP:09/11/23 Floor Tiling Professional Required: No Accompanied by: Mother Allergies Seasonal Allergies Allergy (Mild, Verified 09/29/23 13:49) Unknown HPI Comments Details: 33-year-old female patient presenting for evaluation of enlarged lymph nodes of the neck. She 1st noted the node under the chin in 02/28/2023 were then forgot about it for several months. She did note difficulty with swallowing and a choking sensation especially while sleeping. She denies fevers, chills, night sweats, anorexia or weight loss. Evaluation with both ultrasound and CT of soft tissue of the neck revealed several enlarged lymph nodes. The patient underwent an ultrasound-guided needle core biopsy. This revealed findings suggestive of a reactive lymph node although a lymphoproliferative disorder could not be completely excluded. The patient did report a dental examination at the time of the discovery of the lymph nodes . She also has a CT which she reports frequently being scratched by including a scratch located in her chest. The size of the nodes have been documented to have decreased between the time of the ultrasound and CT. [facility] Surgical History (Updated 09/29/23 @ 13:48 by GANESH Tracy) History of open heart surgery History of excision of pilonidal cyst Hx of craniotomy Family History (Updated 09/29/23 @ 13:47 by GANESH Tracy) Maternal Grandmother Ovarian cancer Breast cancer Maternal Aunt Breast cancer Family/Other Breast cancer Paternal Grandmother Breast cancer Paternal Grandfather Prostate cancer Social History (Updated 09/29/23 @ 13:47 by GANESH Tracy) Alcohol intake: current Patient Tobacco Use Status: Never used Tobacco Review of Systems Const All systems reviewed & are unremarkable except as noted in HPI and below Denies chills, Denies fever(s), Denies headache(s), Denies poor appetite and Denies weakness ENT Denies headache(s) and Reports neck mass Card Denies chest pain, Denies irregular heart rhythm, Denies palpitations and Denies dyspnea Resp Reports cough, Denies excessive phlegm production and Denies dyspnea GI Denies abdominal pain, Denies bloating, Denies change in bowel habits, Denies constipation, Denies heartburn, Denies diarrhea, Denies nausea and Denies vomiting Denies urinary frequency Musc Denies back pain, Denies muscle weakness and Denies numbness Skin/Breast Denies changing lesions and Denies unusual bruising Neuro Denies headache(s), Denies numbness, Denies paresthesias and Denies weakness Psych Denies anxiety and Denies depression Endo Denies palpitations Venkat/Lymph Denies lymphadenopathy Physical Exam Vital Signs: Last Vital Signs Pulse 87 09/29/23 13:49 BP 118/68 09/29/23 13:49 BMI result Body Mass Index 27.9 Const General: cooperative and no acute distress Nutritional Appearance: well nourished Orientation/consciousness: patient oriented x3 Limitations: no limitations HEENT Head: Yes normocephalic and Yes atraumatic Ears: hearing grossly normal bilaterally Face images: 2 1. palpable mass approximately 1 cm diameter Eyes Sclerae: sclerae normal Neck Other: unable to feel any enlarged lymph nodes in both the left and right cervical regions Resp Effort & Inspection: normal respiratory effort, no audible wheezes, no cough and no respiratory distress Cardio Jugular venous distension: no JVD GI Inspection: Yes normal to inspection Skin Other: Warm, dry, no rash Neuro General: patient oriented x3 Extrem General: Yes no clubbing, cyanosis or edema Assessment & Plan Assessment & Plan (1) Neck mass: Code(s): R22.1 - Localized swelling, mass and lump, neck Category: Medical (2) Dysphagia: Code(s): R13.10 - Dysphagia, unspecified Category: Medical Plan 33-year-old female patient with multiple head and neck symptoms including dysphagia, choking during her sleep, voice changes and a palpable mass in the submental region presenting for possible lymph node biopsy. The initial needle biopsy results were suggestive of a reactive lymph node with a definitive diagnosis could not be made. Of note the patient does have a cat and has previously been scratched both her arms and chest. Because of the location of the mass in the additional symptoms I suggested consultation with Ear Nose and Throat . She expressed understanding and agrees with the plan. Orders: Referrals 2 Ear/Nose/Throat Referral R13.10 - Dysphagia, unspecified, R22.1 - Localized swelling, mass and lump, neck Medications: Discontinued 2 cyclobenzaprine Discontinued Reason: Patient Completed Course 5 mg PO Q8H 5 days PRN 14 tabs 0RF pain (scale score 7-10) lidocaine 5% (Lidoderm) leave on most painful area for up to 12 hrs Discontinued Reason: Patient Completed Course 1 patch topical DAILY PRN 30 ea 0RF pain MDD remove after 12 hours Coding Level of Care Code New Pt Level 4 (79447) Diagnoses Neck mass R22.1 Dysphagia R13.10
[2023-09-29 13:49] VITALS: BP 118/68; PULSE 87; BMI 27.9
== END 2023-09-29 14:29 | disposition home or self-care (01) ==
PROVIDERS: PCP Family Medicine; Visit Provider Surgery
DX: R22.1 Localized swelling, mass and lump, neck (principal); R13.10 Dysphagia, unspecified
CPT/HCPCS: 99204

== ENCOUNTER → 2023-09-29 13:28 | Outpatient (BNVA) | payer OTHER, SELFPAY | PROVIDERS: PCP Family Medicine; Visit Provider Surgery ==

== ENCOUNTER 2023-10-16 15:23 | Outpatient (REF) | payer OTHER, SELFPAY ==
[2023-10-16 15:49] LABS: MANUAL DIFF FLAG NO
[2023-10-16 17:06] LABS: Basophils Percent Auto 0.6 % (0-2); Eosinophils Absolute Auto 0.3 X10*3/uL (0.0-0.4); Eosinophils Percent Auto 4.7 % (0-4); Hematocrit 40.4 % (37.0-47.0); Hemoglobin 13.1 g/dl (12.0-16.0); Imm Gran Abs Auto 0.01 X10*3/uL (0.00-0.03); Imm Gran Pct Auto 0.2 % (0.0-0.4); Lymphocytes Absolute Auto 1.6 X10*3/uL (1.2-4.9); Lymphocytes Percent Auto 25.3 % (20-40); Mean Corpuscular HGB Conc 32.4 g/dl (31.0-35.0); Mean Corpuscular Hemoglobin 29.8 pg (27.0-33.0); Mean Corpuscular Volume 91.8 fL (80.0-98.0); Mean Platelet Volume 11.3 fL (9.4-12.3); Monocytes Absolute Auto 0.4 X10*3/uL (0.1-1.2); Monocytes Percent Auto 6.3 % (2-11); Neutrophils Percent Auto 62.9 % (45-73); Platelet Count 222 X10*3/uL (160-400); Red Cell Distribution Width 12.6 % (11.0-16.0); White Blood Count 6.4 X10*3/uL (4.8-10.8)
== END 2023-10-16 15:24 | disposition home or self-care (01) ==
LOC: HO.LAB 15:23
PROVIDERS: PCP Family Medicine; Visit Provider Internal Medicine Interventional Cardiology
DX: Q21.0 Ventricular septal defect (principal)
CPT/HCPCS: 36415; 85025

== ENCOUNTER 2023-11-14 12:57 | Outpatient (REF) | payer OTHER, SELFPAY ==
--- NOTE | ~2023-11-14 | MR_ITS ---
EXAMINATION: MRI OF THE BRAIN WITH AND WITHOUT IV CONTRAST MRI OF THE CERVICAL SPINE WITH AND WITHOUT CONTRAST INDICATION: Pilocytic astrocytoma COMPARISON: CT head on 05/13/2022 TECHNIQUE: Multiplanar multisequence MR imaging of the brain and cervical spine obtained without and following the administration of 7 mL of Gadavist without complication. FINDINGS: BRAIN: Postsurgical changes from suboccipital craniotomy for mass resection. There are encephalomalacic changes in the right cerebellum. Low nodular enhancement at the surgical site. No other focus of suspicious intraparenchymal enhancement. No acute intracranial hemorrhage or infarct. No midline shift or hydrocephalus. No acute extra-axial fluid collections. The osseous structures are unremarkable. The pituitary gland, pineal gland and remaining midline structures are unremarkable. No orbital pathology. Mild mucosal thickening of the right maxillary sinus. The mastoid air cells are clear. Cervical spine: Straightening of the normal cervical lordosis, likely positional. No listhesis. No acute bone marrow abnormality or suspicious enhancement. The vertebral body heights are preserved. Multilevel disc desiccation without significant disc height loss. The visualized spinal cord is normal in caliber. No abnormal cord signal or enhancement. C2-3: Bilateral facet arthrosis. No significant spinal canal or neural foraminal narrowing. C3-4: No significant spinal canal or neural foraminal narrowing. C4-5: Small disc osteophyte complex. No significant spinal canal or neural foraminal narrowing. C5-6: Small disc osteophyte complex. No significant spinal canal or neural foraminal narrowing. C6-7: No significant spinal canal or neural foraminal narrowing. C7-T1: No significant spinal canal or neural foraminal narrowing. The paravertebral soft tissues are unremarkable. The imaged right lung apex is clear. MR/MR cervical spine wo/w con IMPRESSION: 1. Postsurgical changes from suboccipital craniotomy for mass resection. No evidence of residual or recurrent tumor. 2. No evidence of metastatic disease in the cervical spine. Electronically signed by: Sukhjinder Elliott MD 12/01/2023 03:25 PM EDT
[2023-11-14] MEDS: gadobutroL 7.5 ML VIAL IVPUSH (14:18)
== END 2023-11-14 12:58 | disposition home or self-care (01) ==
LOC: HO.MRI 12:57
PROVIDERS: PCP Family Medicine; Visit Provider Psychiatry & Neurology Neurology
DX: C71.9 Malignant neoplasm of brain, unspecified (principal)
CPT/HCPCS: 70553; 72156; A9585

== ENCOUNTER 2023-11-15 12:54 | Outpatient (REF) | payer OTHER, SELFPAY ==
--- NOTE | ~2023-11-15 | MR_ITS ---
EXAMINATION: MR thoracic spine with and without contrast MRI lumbar spine with and without contrast INDICATION: Metastases? COMPARISON: None available. TECHNIQUE: Multiplanar multisequence MR imaging of the thoracic and lumbar spine before and after administration of. FINDINGS: The visualized spinal cord is normal in caliber. No abnormal cord signal or enhancement. The conus medullaris terminates at L2. The paravertebral soft tissues are unremarkable. Right renal cyst. Otherwise, the intrathoracic and intra-abdominal structures are grossly within normal limits. THORACIC SPINE: Preservation of the normal thoracic kyphosis. No listhesis. No acute bone marrow abnormality or suspicious enhancement. The vertebral body heights are preserved. The disc spaces are also preserved. No significant disc herniation, spinal canal stenosis, or neural foraminal narrowing throughout the thoracic spine. LUMBAR SPINE Preservation of the normal lumbar lordosis. No listhesis. No acute bone marrow abnormality or suspicious enhancement. The vertebral body heights are preserved. The disc spaces are also preserved. T12-L1: No significant spinal canal or neural foraminal narrowing. L1-2: No significant spinal canal or neural foraminal narrowing. L2-3: No significant spinal canal or neural foraminal narrowing. L3-4: No significant spinal canal or neural foraminal narrowing. L4-5: No significant spinal canal or neural foraminal narrowing. L5-S1: No significant spinal canal or neural foraminal narrowing. MR/MR lumbar spine wo/w con IMPRESSION: Unremarkable MRI of the thoracic and lumbar spine. No evidence of metastatic disease. Electronically signed by: Sukhjinder Elliott MD 11/27/2023 07:53 PM EDT
--- NOTE | ~2023-11-15 | MR_ITS ---
EXAMINATION: MR thoracic spine with and without contrast MRI lumbar spine with and without contrast INDICATION: Metastases? COMPARISON: None available. TECHNIQUE: Multiplanar multisequence MR imaging of the thoracic and lumbar spine before and after administration of. FINDINGS: The visualized spinal cord is normal in caliber. No abnormal cord signal or enhancement. The conus medullaris terminates at L2. The paravertebral soft tissues are unremarkable. Right renal cyst. Otherwise, the intrathoracic and intra-abdominal structures are grossly within normal limits. THORACIC SPINE: Preservation of the normal thoracic kyphosis. No listhesis. No acute bone marrow abnormality or suspicious enhancement. The vertebral body heights are preserved. The disc spaces are also preserved. No significant disc herniation, spinal canal stenosis, or neural foraminal narrowing throughout the thoracic spine. LUMBAR SPINE Preservation of the normal lumbar lordosis. No listhesis. No acute bone marrow abnormality or suspicious enhancement. The vertebral body heights are preserved. The disc spaces are also preserved. T12-L1: No significant spinal canal or neural foraminal narrowing. L1-2: No significant spinal canal or neural foraminal narrowing. L2-3: No significant spinal canal or neural foraminal narrowing. L3-4: No significant spinal canal or neural foraminal narrowing. L4-5: No significant spinal canal or neural foraminal narrowing. L5-S1: No significant spinal canal or neural foraminal narrowing. MR/MR thoracic spine wo/w con IMPRESSION: Unremarkable MRI of the thoracic and lumbar spine. No evidence of metastatic disease. Electronically signed by: Sukhjinder Elliott MD 11/27/2023 07:53 PM EDT
[2023-11-15] MEDS: gadobutroL 7.5 ML VIAL IVPUSH (13:46)
== END 2023-11-15 12:55 | disposition home or self-care (01) ==
LOC: HO.MRI 12:54
PROVIDERS: PCP Family Medicine; Visit Provider Psychiatry & Neurology Neurology
DX: C71.9 Malignant neoplasm of brain, unspecified (principal)
CPT/HCPCS: 72157; 72158; A9585

== ENCOUNTER 2023-11-19 15:27 | Outpatient (REF) | payer OTHER, SELFPAY ==
[2023-11-19 16:40] LABS: Thyroid Stimulating Hormone 1.68 uIU/mL (0.32-4.0)
[2023-11-21 03:59] LABS: Thyroid Peroxidase Antibodies 226 IU/mL (<9)
== END 2023-11-19 15:28 | disposition home or self-care (01) ==
LOC: HO.LAB 15:27
PROVIDERS: PCP Family Medicine; Visit Provider Family Medicine
DX: F98.8 Other specified behavioral and emotional disorders with onset usually occurring in childhood and adolescence (principal); M22.2X9 Patellofemoral disorders, unspecified knee; R59.1 Generalized enlarged lymph nodes
CPT/HCPCS: 36415; 84443; 86376

== ENCOUNTER 2023-12-03 16:01 | Outpatient (REF) | payer OTHER, SELFPAY ==
[2023-12-03 16:31] LABS: MANUAL DIFF FLAG NO
[2023-12-03 17:00] LABS: Basophils Percent Auto 0.5 % (0-2); Eosinophils Absolute Auto 0.3 X10*3/uL (0.0-0.4); Eosinophils Percent Auto 3.9 % (0-4); Hemoglobin 13.9 g/dl (12.0-16.0); Imm Gran Abs Auto 0.02 X10*3/uL (0.00-0.03); Imm Gran Pct Auto 0.3 % (0.0-0.4); Lymphocytes Absolute Auto 1.9 X10*3/uL (1.2-4.9); Lymphocytes Percent Auto 29.1 % (20-40); Mean Corpuscular HGB Conc 33.1 g/dl (31.0-35.0); Mean Corpuscular Volume 87.5 fL (80.0-98.0); Mean Platelet Volume 10.7 fL (9.4-12.3); Monocytes Absolute Auto 0.5 X10*3/uL (0.1-1.2); Monocytes Percent Auto 7.1 % (2-11); Neutrophils Absolute Auto 3.8 x10*3/uL (2.0-8.3); Neutrophils Percent Auto 59.1 % (45-73); Platelet Count 213 X10*3/uL (160-400); Red Cell Distribution Width 12.4 % (11.0-16.0); White Blood Count 6.5 X10*3/uL (4.8-10.8)
[2023-12-03 17:07] LABS: Partial Thromboplastin Time 34.5 SEC (26.0-36.8)
== END 2023-12-03 16:02 | disposition home or self-care (01) ==
LOC: HO.LAB 16:01
PROVIDERS: PCP Family Medicine; Visit Provider Family Medicine
DX: D69.9 Hemorrhagic condition, unspecified (principal)
CPT/HCPCS: 36415; 85025; 85730

== ENCOUNTER 2024-02-24 14:07 | Outpatient (RCR) | payer OTHER, SELFPAY | END 2024-04-06 13:53 | disposition home or self-care (01) | LOC: HO.PT 14:07 | PROVIDERS: PCP Family Medicine; Visit Provider Family Medicine | DX: M22.2X1 Patellofemoral disorders, right knee (principal); M22.2X2 Patellofemoral disorders, left knee | CPT/HCPCS: 97110; 97112; 97140; 97161; 97530; 97535 ==

== ENCOUNTER → 2024-12-19 15:49 | Outpatient (BNVA) | payer OTHER, SELFPAY | PROVIDERS: PCP Family Medicine; Visit Provider Emergency Medicine | DX: S46.811A Strain of other muscles, fascia and tendons at shoulder and upper arm level, right arm, initial encounter (principal); W50.0XXA Accidental hit or strike by another person, initial encounter | CPT/HCPCS: 99202 ==

== ENCOUNTER → 2024-12-21 14:17 | Outpatient (BNVA) | payer OTHER, SELFPAY | PROVIDERS: PCP Family Medicine; Visit Provider Emergency Medicine | DX: S46.811A Strain of other muscles, fascia and tendons at shoulder and upper arm level, right arm, initial encounter (principal); W50.0XXA Accidental hit or strike by another person, initial encounter; Z02.79 Encounter for issue of other medical certificate | CPT/HCPCS: 99213 ==